=== PATIENT | male | born 2000 | race Caucasian/White ===

== ENCOUNTER 2020-11-15 11:50 | Emergency (ER) | payer SELFPAY ==
[2020-11-15] MEDS ORDERED: Ketorolac 60 MG/2 ML SDV IM ONE (11:53)
[2020-11-15] MEDS ORDERED: Silver Sulfadiazine 1% Crm 25 GM Tube TOP ONE (11:54)
[2020-11-15] MEDS ORDERED: HYDROmorphone 1 MG/ML Syringe IM ONE (11:54)
[2020-11-15] MEDS ORDERED: Diphtheria,Pertussis(Acell),Tetanus Vaccine 0.5 ML Syringe IM ONE (11:56)
--- NOTE | 2020-11-15 11:56 | EDM.PDOC ---
ED HPI GENERAL MEDICAL PROBLEM - General Chief Complaint: Burn Stated Complaint: BURN HAND AT WORK Time Seen by Provider: 11/15/20 11:50 Source of Information: Reports: Patient History Limitations: Reports: No Limitations - History of Present Illness INITIAL COMMENTS - FREE TEXT/NARRATIVE: Nishant, 20-year-old male, presents per pedis to the emergency department after he had driven himself here secondary of a burn to the palm of the left hand. States this occurred at work today, from the exhaust pipe on a vehicle, [employer]. It involves the palm of the left hand. Was on the machine, [employer], when he slipped losing his balance and grabbed onto the exhaust system with his left hand as he was attempting to correct his stance. He has duct taped some cool wet dressings over this at the scene prior to his arrival. He denies any other factors, also denying any allergies. Denies taking any current medications. Onset: Today, Sudden Location: Reports: Upper Extremity, Left - Related Data Allergies Allergy/AdvReac Type Severity Reaction Status Date / Time No Known Allergies Allergy Verified 11/15/20 12:19 Home Meds: Home Meds Hydrocodone/Acetaminophen [Hydrocodone-Acetamin 5-325 mg] 1 each PO Q4HWA 4 Days #24 tablet 11/15/20 [Rx] Past Medical History Cardiovascular History: Reports: None Respiratory History: Reports: None Neurological History: Reports: Other (See Below) (Tourette's syndrome) Psychiatric History: Reports: Depression Social & Family History - Family History Family Medical History: No Pertinent Family History - Tobacco Use Tobacco Use Within Last Twelve Months: Vaping ED ROS GENERAL - Review of Systems Review Of Systems: Comprehensive ROS is negative, except as noted in HPI. ED EXAM, GENERAL - Physical Exam Exam: See Below Free Text/Narrative:: Alert, oriented, in painful distress. He is able to converse with us but is very irritable secondary of his discomfort. There is no cyanosis nor pallor. HEENT negative to discharge nor deformity. No wheezes no crackles are noted overall clear exchange. Cardiac is regular pulse radial present. Focused examination left palm shows second-degree burn over the surface from the base of the thumb up towards the fourth and fifth digits. Appears to be thickness burn to the callused portion of the hand with no blister containing fluids. Range of motion is intact but limited secondary of his pain with capillary refill and sensation being intact to the distal digits. No other areas of injury or concern are acknowledged nor witnessed. Front/Back Body Diagram: 1 - burn 2 - burn 3 - burn Course - Vital Signs Last Recorded V/S: Last Vital Signs Temp 96.6 F L 11/15/20 11:53 Pulse 102 H 11/15/20 11:53 Resp 20 11/15/20 11:53 BP Pulse Ox 99 11/15/20 11:53 - Orders/Labs/Meds Orders: Active Orders 24 hr Category Date Time Status Vaccines to be Administered [RC] PER UNIT ROUTINE Care 11/15/20 11:56 Ordered Meds: Medications Discontinued Medications Generic Name Dose Route Start Last Admin Trade Name Freq PRN Reason Stop Dose Admin Diphtheria/Tetanus/Acell Pertussis 0.5 ml 11/15/20 11:56 Diphtheria,Pertussis(Acell),Tetanus Vaccine 0.5 Ml Syringe IM 11/15/20 11:57 .ONCE ONE Hydromorphone HCl 1 mg 11/15/20 11:54 Hydromorphone 1 Mg/Ml Syringe IM 11/15/20 11:55 ONETIME ONE Ketorolac Tromethamine 60 mg 11/15/20 11:53 Ketorolac 60 Mg/2 Ml Sdv IM 11/15/20 11:54 ONETIME ONE Silver Sulfadiazine 2 gm 11/15/20 11:54 Silver Sulfadiazine 1% Crm 25 Gm Tube TOP 11/15/20 11:55 ONETIME ONE Departure - Departure Time of Disposition: 12:10 Disposition: Home, Self-Care 01 Condition: Good Clinical Impression: Burn of palm of hand, left, second degree, Work related injury, Immunization due - Discharge Information *PRESCRIPTION DRUG MONITORING PROGRAM REVIEWED*: Yes *COPY OF PRESCRIPTION DRUG MONITORING REPORT IN PATIENT ANNI: Yes Instructions: Second-Degree Burn, Adult, VIS, Tetanus, Diphtheria, and Pertussis (Tdap) - [facility] (10/20/2019) Referrals: Yvette Zheng MD [Primary Care Provider] - Forms: ED Department Discharge Additional Instructions: You have been given 2 injections for your pain. You have been updated in your tetanus diphtheria status. We have treated the palm with Silvadene topical cream. This needs to be changed twice daily cleansing is much as possible then allowing to completely dry. You can then apply another layer over the burned area and cover with clean dressing. Prescription to [facility] in [place] for Hydrocodone, 1 every 4 hours while awake for pain. You should be seen in your clinic the end of this week or Friday of next week for reevaluation and reevaluation of work status. You need to keep this is clean and dry as possible. If it should become soiled or wet you need to change the dressing as soon as possible to reduce the risk of infection. Follow-up with your clinic or return to the emergency department if symptoms become severe, or evidence or concerns for infection develop. Sepsis Event Note (ED) - Focused Exam Vital Signs: Vital Signs Temp Pulse Resp Pulse Ox 11/15/20 11:53 96.6 F L 102 H 20 99 - Problem List & Annotations (1) Burn of palm of hand, left, second degree SNOMED Code(s): 86706418737482062 Code(s): T23.252A - BURN OF SECOND DEGREE OF LEFT PALM, INITIAL ENCOUNTER Status: Acute Priority: High Current Visit: Yes Qualifiers: Encounter type: initial encounter Qualified Code(s): T23.252A - Burn of second degree of left palm, initial encounter (2) Immunization due SNOMED Code(s): 897201446 Code(s): Z23 - ENCOUNTER FOR IMMUNIZATION Status: Acute Priority: High Current Visit: Yes (3) Work related injury SNOMED Code(s): 23529541 Code(s): Y99.0 - CIVILIAN ACTIVITY DONE FOR INCOME OR PAY Status: Acute Priority: High Current Visit: Yes - Problem List Review Problem List Initiated/Reviewed/Updated: Yes - My Orders Last 24 Hours: My Active Orders 11/15/20 11:56 Vaccines to be Administered [RC] PER UNIT ROUTINE - Assessment/Plan Last 24 Hours: My Active Orders 11/15/20 11:56 Vaccines to be Administered [RC] PER UNIT ROUTINE Plan: You have been given 2 injections for your pain. You have been updated in your tetanus diphtheria status. We have treated the palm with Silvadene topical cream. This needs to be changed twice daily cleansing is much as possible then allowing to completely dry. You can then apply another layer over the burned area and cover with clean dressing. Prescription to [facility]ckoy in [place] for Hydrocodone, 1 every 4 hours while awake for pain. You should be seen in your clinic the end of this week or Friday of next week for reevaluation and reevaluation of work status. You need to keep this is clean and dry as possible. If it should become soiled or wet you need to change the dressing as soon as possible to reduce the risk of infection. Follow-up with your clinic or return to the emergency department if symptoms become severe, or evidence or concerns for infection develop.
== END 2020-11-15 13:08 | disposition home or self-care (01) ==
LOC: KA.ED 11:50
DX: T23.252A Burn of second degree of left palm, initial encounter (principal); Z23 Encounter for immunization; X17.XXXA Contact with hot engines, machinery and tools, initial encounter; Y99.0 Civilian activity done for income or pay
CPT/HCPCS: 16020; 90471; 90715; 96372; 99283; A9270-GY; J1170; J1885